=== PATIENT | female | born 1975 | race Caucasian/White ===

== ENCOUNTER 2021-01-01 12:26 | Observation (INO) | payer MEDICAID, SELFPAY ==
[2021-01-01] VITALS (10 sets, daily range): BP systolic 137–176; BP diastolic 67–96; PULSE 85–96; RESP 18–30; TEMP 36.5–36.8; O2SAT 99–100; BMI 26.6; BMI 28.0
--- NOTE | 2021-01-01 12:31 | XR_ITS ---
PROCEDURE: XR CHEST PORTABLE CLINICAL HISTORY: shortness of breath COMPARISON: No exams were available for comparison FINDINGS: The cardiomediastinal silhouette and pulmonary vascularity are within normal limits. There is a faint nodular opacity overlying the left 5th rib anteriorly at 9 mm. The remaining lungs are clear aside from a calcified granuloma in the left upper lobe. No acute bony abnormalities. IMPRESSION: Indeterminate 9 mm nodular opacity overlying the left 9th rib inferiorly at the lower lung zone on the left. This could be due to summation artifact, pulmonary nodule or sclerotic rib lesion. Nonemergent chest CT may provide further evaluation. Otherwise negative. Dictated by: Trenton Espino MD 01/01/2021 14:33 Trenton Espino MD in [place] 01/01/2021 14:33
--- NOTE | 2021-01-01 12:34 | HMH.EDGENADL ---
ED Disposition Clinical Impression: Asthma with exacerbation Qualifiers: Asthma severity: severe Asthma persistence: persistent Qualified Code(s): J45.51 - Severe persistent asthma with (acute) exacerbation Disposition: Home, Self-Care Condition on Discharge: Good - Critical Care Critical Care Time: Yes Attestation: On , the high probability of a clinically significant, sudden or life threatening deterioration of the following system(s) required my full and direct attention, intervention and personal management. The time I documented below is in addition to time spent performing reported procedures but includes the following listed in this critical care notation. Vital system(s) involved:: Respiratory Failure My critical care processes included: Assessment & monitoring of V/S, Initial and Re-exams, Data Review/Interpretation, Coordinating Care, Medication Orders and management, Documentation Medical Decision Making - Medical Records Medical records reviewed: Yes: I reviewed the patient's medical records. - Robbie Inquiry Pt receiving controlled substance: Yes Robbie was queried for this patient: No Risks and benefits of using a controlled substance: were discussed with pt by me Vital Signs: 01/01/21 12:43 01/01/21 14:00 01/01/21 15:30 Temperature 98.1 F Temperature Source Oral Pulse Rate 95 H 94 H Pulse Rate [Right Radial] 96 H Respiratory Rate 19 Blood Pressure 152/96 H 158/94 H Blood Pressure [Right Arm] 176/67 H Blood Pressure Mean [Right Arm] 103 Blood Pressure Source Manual Cuff/ Auscultation Blood Pressure Source [Right Arm] Automatic Cuff Blood Pressure Position [Right Arm] Sitting 02 Sat by Pulse Oximetry 100 100 Oxygen Delivery Method Nasal Cannula Oxygen Flow Rate (LPM) 3 01/01/21 16:44 Temperature Temperature Source Pulse Rate 86 Pulse Rate [Right Radial] Respiratory Rate Blood Pressure 148/83 H Blood Pressure [Right Arm] Blood Pressure Mean [Right Arm] Blood Pressure Source Blood Pressure Source [Right Arm] Blood Pressure Position [Right Arm] 02 Sat by Pulse Oximetry 100 Oxygen Delivery Method BiPAP Oxygen Flow Rate (LPM) - Lab Data Lab Results 01/01/21 12:31: VBG pH 7.30 L, VBG pCO2 56.3 H, VBG pO2 51.8 H, VBG HCO3 26.8, VBG Total CO2 28.6 H, VBG O2 Saturation 85.4 H, VBG Base Excess 0.3 01/01/21 12:55: WBC 8.3, RBC 4.61, Hgb 13.2, Hct 41.3, MCV 89.7, MCH 28.6, MCHC 31.9, RDW 13.3, Plt Count 271, MPV 8.3, Neut % (Auto) 62.3, Lymph % (Auto) 22.4, Hand % (Auto) 5.1, Eos % (Auto) 9.3, Baso % (Auto) 1.0, Neut # (Auto) 5.2, Lymph # (Auto) 1.9, Hand # (Auto) 0.4, Eos # (Auto) 0.8 H, Baso # (Auto) 0.1 01/01/21 12:55: Sodium 138, Potassium 3.3 L, Chloride 104, Carbon Dioxide 31 H, Anion Gap 6.3, BUN 11, Creatinine 0.70, Estimated Creat Clear 114, Estimated GFR 90, Est GFR ( Amer) 109, Glucose 128 H, Calcium 8.6, Total Bilirubin 0.3, AST 21, ALT 14, Alkaline Phosphatase 90, Troponin I < 0.01, NT-Pro-B Natriuret Pep 193 H, Total Protein 6.6, Albumin 3.6, Globulin 3.0, Albumin/Globulin Ratio 1.2, Procalcitonin 0.038 01/01/21 13:17: Chlamy pneumoniae PCR Not detected, Adenovirus (PCR) Not detected, B. pertussis DNA (PCR) Not detected, Coronavirus OC43 (PCR) Not detected, Coronavirus HKU1 (PCR) Not detected, Coronavirus 229E (PCR) Not detected, SARS-CoV-2 (PCR) Not detected, Coronavirus NL63 (PCR) Not detected, Human Metapneumovir PCR Not detected, Influenza A (H1) PCR Not detected, Influ A (H1N1/09) PCR Not detected, Influenza A (H3) PCR Not detected, Influenza Type A (PCR) Not detected, Influenza Type B (PCR) Not detected, M. pneumoniae (PCR) Not detected, Parainfluenza 1 (PCR) Not detected, Parainfluenza 2 (PCR) Not detected, Parainfluenza 3 (PCR) Not detected, Parainfluenza 4 (PCR) Not detected, RSV (PCR) Not detected, Entero/Rhino (PCR) Not detected 01/01/21 15:45: Troponin I < 0.01 01/01/21 17:00: VBG pH 7.31, VBG pCO2 55.3 H, VBG pO2 73.7 H, VBG HCO3 27.4, VBG Tota
[2021-01-01 13:12] LABS: Basophils # 0.1 K/mm3 (0-0.2); Eosinophils # 0.8 K/mm3 (0.0-0.4); Eosinophils % 9.3 % (0.1-12.0); Hematocrit 41.3 % (37.0-47.0); Hemoglobin 13.2 g/dL (12.2-16.2); Lymphocytes # 1.9 K/mm3 (0.7-4.5); Lymphocytes % 22.4 % (10-50); Mean Corpuscular HGB Conc 31.9 g/dL (31.8-35.4); Mean Corpuscular Hemoglobin 28.6 pg (27.0-31.2); Mean Corpuscular Volume 89.7 fl (81-99); Mean Platelet Volume 8.3 fl (7.4-10.4); Monocytes # 0.4 K/mm3 (0.1-1.0); Monocytes % 5.1 % (1.7-9.3); Neutrophils # 5.2 K/mm3 (1.8-7.8); Neutrophils % 62.3 % (37.0-80.0); Platelet Count 271 K/mm3 (142-424); Red Blood Count 4.61 M/mm3 (4.20-5.40); Red Cell Distribution Width 13.3 % (11.5-17.5); White Blood Count 8.3 K/mm3 (4.8-10.8)
[2021-01-01 13:14] LABS: Chloride 104 mmol/L (98-107); Potassium 3.3 mmoL/L (3.5-5.1); Sodium 138 mmol/L (136-145)
[2021-01-01 13:17] LABS: Alanine Aminotransferase 14 U/L (12-78); Albumin Level 3.6 g/dl (3.5-5.0); Albumin/Globulin Ratio 1.2 (1.1-1.8); Alkaline Phosphatase 90 U/L (38-126); Anion Gap 6.3 mEq/L (5-15); Aspartate Amino Transferase 21 U/L (14-36); Bilirubin,Total 0.3 mg/dl (0.2-1.3); Blood Urea Nitrogen 11 mg/dl (7-17); Carbon Dioxide 31 mmol/L (22.0-30.0); Creatinine Clearance Estimated 114 mL/min (50-200); Estimated Glomerular Filt Rate 90 ml/min (>60); GFR (African American) 109 ML/MIN (>60); Total Protein,Serum 6.6 g/dl (6.3-8.2)
[2021-01-01 13:18] LABS: Calcium 8.6 mg/dl (8.4-10.2); Glucose 128 mg/dl (74-100)
[2021-01-01 13:26] LABS: NT Pro Brain Natriuretic Pep. 193 pg/mL (0-125)
[2021-01-01 13:29] LABS: Adenovirus,PCR Not Detected (NotDetected); Bordetella Pertussis Not Detected (NotDetected); Chlamydophila Pneumoniae, PCR Not Detected (NotDetected); Coronavirus 19, PCR Not Detected (NotDetected); Coronavirus 229E Not Detected (NotDetected); Coronavirus NL63 Not Detected (NotDetected); Coronavirus OC43 Not Detected (NotDetected); Coronovirus HKU1,PCR Not Detected (NotDetected); Human Metapneumovirus Not Detected (NotDetected); Influenza A, PCR Not Detected (NotDetected); Influenza AH1, 2009 Not Detected (NotDetected); Influenza AH1, PCR Not Detected (NotDetected); Influenza AH3,PCR Not Detected (NotDetected); Influenza B, PCR Not Detected (NotDetected); Mycoplasma Pneumoniae, PCR Not Detected (NotDetected); Parainfluenza 1, PCR Not Detected (NotDetected); Parainfluenza 2, PCR Not Detected (NotDetected); Parainfluenza 3, PCR Not Detected (NotDetected); Parainfluenza 4, PCR Not Detected (NotDetected); Respiratory Syncytial Virus Not Detected (NotDetected); Rhinovirus/Enterovirus Not Detected (NotDetected)
[2021-01-01 13:39] LABS: Troponin I < 0.01 ng/ml (0.00-0.034)
[2021-01-01 13:41] LABS: VBG Base Excess 0.3 mmol/L (-2.4-2.3); VBG HCO3 26.8 mmol/L (23-30); VBG Oxygen Saturation 85.4 % (50-70); VBG PO2 51.8 mmol/L (28-40); VBG Total CO2 28.6 mmol/L (23-27)
[2021-01-01 13:44] LABS: VBG PCO2 56.3 mmol/L (35-51)
[2021-01-01 14:03] LABS: Procalcitonin 0.038 ng/mL (0.0-2.0)
[2021-01-01 16:24] LABS: Troponin I < 0.01 ng/ml (0.00-0.034)
[2021-01-01 17:07] LABS: VBG Base Excess 1.2 mmol/L (-2.4-2.3); VBG HCO3 27.4 mmol/L (23-30); VBG Oxygen Saturation 94.1 % (50-70); VBG PH 7.31 mmol/L (7.31-7.41); VBG PO2 73.7 mmol/L (28-40); VBG Total CO2 29.1 mmol/L (23-27)
--- NOTE | 2021-01-01 17:08 | PC.NURSE ---
Dr Merline edwards.
[2021-01-01 17:10] LABS: VBG PCO2 55.3 mmol/L (35-51)
--- NOTE | 2021-01-01 18:53 | PC.NURSE ---
1850 bed assignment requested, room 208. all staff notified
--- NOTE | 2021-01-01 18:59 | PC.NURSE ---
Pt up to restroom
[2021-01-01 19:20] LABS: Troponin I < 0.01 ng/ml (0.00-0.034)
--- NOTE | 2021-01-01 19:44 | PC.NURSE ---
pt arrived via stretcher at this time
[2021-01-02] VITALS: BP 160/88; PULSE 88; RESP 20; TEMP 37.1; O2SAT 100
[2021-01-02 01:56] VITALS: RESP 24; RESP 25
[2021-01-02 02:36] LABS: POC Glucose,Bedside 132 (70-110)
[2021-01-02 04:00] VITALS: BP 150/90; PULSE 90; RESP 18; TEMP 36.6; O2SAT 97
--- NOTE | 2021-01-02 04:14 | PC.NURSE ---
pt AxOx4, has remained on bipap t/o shift, O2 sats 97-100%, no complaints of pain or SOA, has rested most of shift
[2021-01-02 04:58] VITALS: BMI 28.0
[2021-01-02 07:07] LABS: Basophils % 0.2 % (0.1-2.0); Eosinophils # 0.1 K/mm3 (0.0-0.4); Eosinophils % 0.4 % (0.1-12.0); Hematocrit 42.2 % (37.0-47.0); Hemoglobin 13.4 g/dL (12.2-16.2); Lymphocytes # 0.9 K/mm3 (0.7-4.5); Lymphocytes % 6.3 % (10-50); Mean Corpuscular HGB Conc 31.8 g/dL (31.8-35.4); Mean Corpuscular Hemoglobin 28.3 pg (27.0-31.2); Mean Corpuscular Volume 88.9 fl (81-99); Mean Platelet Volume 9.2 fl (7.4-10.4); Monocytes # 0.1 K/mm3 (0.1-1.0); Monocytes % 0.4 % (1.7-9.3); Neutrophils # 12.5 K/mm3 (1.8-7.8); Neutrophils % 92.6 % (37.0-80.0); Platelet Count 310 K/mm3 (142-424); Red Blood Count 4.75 M/mm3 (4.20-5.40); White Blood Count 13.5 K/mm3 (4.8-10.8)
--- NOTE | 2021-01-02 07:07 | HMH.PHAVTE ---
[facility] Pharmacy VTE Monitoring - Patient Demographics Admission date: 01/01/21 Report Date: 01/02/21 Time: 07:07 Allergies/Adverse Reactions: Patient Allergies No Known Allergies Allergy (Verified 01/01/21 12:41) Height: 1.65 m Weight: 76.232 kg Patient Problems: Current Active Problems Asthma with exacerbation (Acute) - VTE Risk Labs: VTE Related Lab Results Hgb 13.2 g/dL (12.2-16.2) 01/01/21 12:55 Hct 41.3 % (37.0-47.0) 01/01/21 12:55 Plt Count 271 K/mm3 (142-424) 01/01/21 12:55 BUN 11 mg/dl (7-17) 01/01/21 12:55 Creatinine 0.70 mg/dl (0.52-1.04) 01/01/21 12:55 Estimated Creat Clear 114 mL/min (50-200) 01/01/21 12:55 Was VTE Risk Assessment Performed: Yes VTE Score: 3 VTE Risk Level: Low Risk Clinical Trial Participant: No - Prophylaxis VTE Prophylaxis Ordered?: Yes Types of VTE Prophylaxis: TEDS Knee High
[2021-01-02 07:11] LABS: MANUAL DIFFERENTIAL MANUAL DIFFERENTIAL (MANUAL DIFF)
[2021-01-02 07:23] LABS: Chloride 105 mmol/L (98-107); Potassium 4.1 mmoL/L (3.5-5.1); Sodium 137 mmol/L (136-145)
[2021-01-02 07:26] LABS: Anion Gap 10.1 mEq/L (5-15); Blood Urea Nitrogen 11 mg/dl (7-17); Calcium 8.9 mg/dl (8.4-10.2); Carbon Dioxide 26 mmol/L (22.0-30.0); Creatinine Clearance Estimated 139 mL/min (50-200); Estimated Glomerular Filt Rate 107 ml/min (>60); GFR (African American) 130 ML/MIN (>60); Glucose 139 mg/dl (74-100); Phosphorous 2.6 mg/dl (2.5-4.5)
[2021-01-02 07:27] VITALS: O2SAT 95
[2021-01-02 07:27] LABS: Magnesium 2.3 mg/dl (1.6-2.3)
[2021-01-02 07:41] LABS: Lymphocytes % 9 % (10-50); Neutrophils % 91 % (42-76); Total Cells Counted 100
[2021-01-02 07:42] LABS: Hypochromasia 1+; Platelet Estimate Normal
[2021-01-02 07:55] VITALS: BP 124/92; PULSE 98; RESP 20; TEMP 36.4; O2SAT 99
--- NOTE | 2021-01-02 08:26 | HMH.HPDC ---
General - General Admission date:: 01/01/21 Discharge date: 01/02/21 *Admission Date: 01/01/21 *Chief complaint: Wheezing and shortness of air *History of present illness: 45-year-old female with significantly fragmented medical care who has not seen her primary care nurse practitioner in over 1 year because of her fears about going to healthcare settings in light of the current COVID-19 pandemic who has had asthma for many years. She became extremely short of air and was afflicted with coughing and tachypnea and wheezing over the past 3 or 4 days and reported to the emergency department. She was tachypneic, mildly hypoxic, and did not break with 1 dose of IV steroids and nebulizers and she was watched overnight for further decompensation and admitted to hospital for a couple more doses of IV steroids and fluids. She reports that she has a nebulizer and oxygen at home, unfortunately she is not really been using her nebulizer appropriately. She has been prescribed inhaled corticosteroids but she is not taking these because of insurance issues and the fact that she does not think dry powder inhalers which are currently improved on her Medicaid plan are helpful for her. She maintains that Symbicort is the only medicine that is ever helped me but my insurance will pay for it. . She also takes Subutex on an every other day basis, this is not prescribed for her, she apparently obtains it from her ex-boyfriend. [facility] History I have reviewed the patient's past medical history: Yes Medical History: Reports:: Asthma Denies:: Cancer, Diabetes Mellitus Type 1, Diabetes Mellitus Type 2, MRSA *Have you ever received a pneumonia vaccine?: No *Have you received a flu vaccine this season?: No Comment:: Ongoing opiate/Subutex use Other Surgeries: Yes: No Previous Surgery Amputation: No - *Social History Last grade of school completed: High school graduate Smoking Status: Current every day smoker Alcohol Intake: never Substance Use Type: crack/cocaine, methamphetamine Last Used Substance: unknown *Occupational Status:: unemployed *Travel in the last 8 weeks: None Family Hx:: Unable to obtain Review of Systems - Review of Systems Review of systems:: pertinent systems reviewed and negative unless documented below Patient reports improving respiratory symptoms. Denies cardiac, GI, skin or musculoskeletal symptoms. Denies neurologic symptoms. Exam Vital signs and Labs for Last 24 Hours: Temp Pulse Resp BP Pulse Ox 97.5 F L 98 H 20 124/92 H 99 01/02/21 07:55 01/02/21 07:55 01/02/21 07:55 01/02/21 07:55 01/02/21 07:55 Laboratory Results - last 24 hr 01/01/21 12:31: VBG pH 7.30 L, VBG pCO2 56.3 H, VBG pO2 51.8 H, VBG HCO3 26.8, VBG Total CO2 28.6 H, VBG O2 Saturation 85.4 H, VBG Base Excess 0.3 01/01/21 12:55: WBC 8.3, RBC 4.61, Hgb 13.2, Hct 41.3, MCV 89.7, MCH 28.6, MCHC 31.9, RDW 13.3, Plt Count 271, MPV 8.3, Neut % (Auto) 62.3, Lymph % (Auto) 22.4, [place] % (Auto) 5.1, Eos % (Auto) 9.3, Baso % (Auto) 1.0, Neut # (Auto) 5.2, Lymph # (Auto) 1.9, [place] # (Auto) 0.4, Eos # (Auto) 0.8 H, Baso # (Auto) 0.1 01/01/21 12:55: Sodium 138, Potassium 3.3 L, Chloride 104, Carbon Dioxide 31 H, Anion Gap 6.3, BUN 11, Creatinine 0.70, Estimated Creat Clear 114, Estimated GFR 90, Est GFR ( Amer) 109, Glucose 128 H, Calcium 8.6, Total Bilirubin 0.3, AST 21, ALT 14, Alkaline Phosphatase 90, Troponin I < 0.01, NT-Pro-B Natriuret Pep 193 H, Total Protein 6.6, Albumin 3.6, Globulin 3.0, Albumin/Globulin Ratio 1.2, Procalcitonin 0.038 01/01/21 13:17: Chlamy pneumoniae PCR Not detected, Adenovirus (PCR) Not detected, B. pertussis DNA (PCR) Not detected, Coronavirus OC43 (PCR) Not detected, Coronavirus HKU1 (PCR) Not detected, Coronavirus 229E (PCR) Not detected, SARS-CoV-2 (PCR) Not detected, Coronavirus NL63 (PCR) Not detected, Human Metapneumovir PCR Not detected, Influenza A (H1) PCR Not detected, Influ A (H1N1/09) PCR Not detected, Influenza A (H3) PCR
== END 2021-01-02 09:05 | disposition home or self-care (01) ==
LOC: ER 18:52 → 2ND 19:34
PROVIDERS: Admitting Provider Internal Medicine Adolescent Medicine; Emergency Provider Student in an Organized Health Care Education/Training Program; Visit Provider Internal Medicine Adolescent Medicine
DX: J45.901 Unspecified asthma with (acute) exacerbation (principal); F17.210 Nicotine dependence, cigarettes, uncomplicated; Z20.822 Contact with and (suspected) exposure to COVID-19
CPT/HCPCS: 36415; 71045; 80048; 80053; 82803; 82962; 83735; 83880; 84100; 84145; 84484; 85007; 85025; 87581; 87632; 87798; 96365; 96375; 99284; C9803; G0378; J0456; J0574; U0003; U0005